=== PATIENT | male | born 1960 | race Caucasian/White ===

== ENCOUNTER → 2020-07-11 11:56 | Outpatient (BNVA) | payer SELFPAY | PROVIDERS: Family Provider Family Medicine; PCP Family Medicine; Visit Provider Nurse Practitioner Family | DX: Z20.828 Contact with and (suspected) exposure to other viral communicable diseases (principal); J06.9 Acute upper respiratory infection, unspecified | CPT/HCPCS: 87635 ==

== ENCOUNTER → 2021-09-13 13:31 | Outpatient (BNVA) | payer OTHER, SELFPAY | PROVIDERS: Family Provider Family Medicine; PCP Family Medicine; Visit Provider Nurse Practitioner | DX: S89.90XA Unspecified injury of unspecified lower leg, initial encounter (principal); M25.561 Pain in right knee; X58.XXXA Exposure to other specified factors, initial encounter | CPT/HCPCS: 73562 ==

== ENCOUNTER → 2022-05-02 11:45 | Outpatient (BNVA) | payer OTHER, SELFPAY | PROVIDERS: Family Provider Family Medicine; PCP Family Medicine; Visit Provider Family Medicine | DX: E11.9 Type 2 diabetes mellitus without complications (principal); E78.5 Hyperlipidemia, unspecified; I10 Essential (primary) hypertension | CPT/HCPCS: 80053; 80061; 83036; 84443; 85025 ==

== ENCOUNTER → 2022-05-30 11:41 | Outpatient (BNVA) | payer OTHER, SELFPAY | PROVIDERS: Family Provider Family Medicine; PCP Family Medicine; Visit Provider Family Medicine | DX: E11.9 Type 2 diabetes mellitus without complications (principal) | CPT/HCPCS: 80048 ==

== ENCOUNTER → 2022-08-01 10:19 | Outpatient (BNVA) | payer OTHER, SELFPAY | PROVIDERS: Family Provider Family Medicine; PCP Family Medicine; Visit Provider Family Medicine | DX: M79.672 Pain in left foot (principal); M79.89 Other specified soft tissue disorders; R93.7 Abnormal findings on diagnostic imaging of other parts of musculoskeletal system | CPT/HCPCS: 73650 ==

== ENCOUNTER 2022-08-22 06:00 | Outpatient (RCR) | payer OTHER, SELFPAY | END 2022-09-19 23:59 | disposition home or self-care (01) | LOC: TPT 06:00 | PROVIDERS: Visit Provider Podiatrist Foot & Ankle Surgery | DX: M76.62 Achilles tendinitis, left leg (principal) | CPT/HCPCS: 97110; 97162 ==

== ENCOUNTER 2022-09-20 06:00 | Outpatient (RCR) | payer OTHER, SELFPAY | END 2022-10-19 23:59 | disposition home or self-care (01) | LOC: TPT 06:00 | PROVIDERS: Visit Provider Podiatrist Foot & Ankle Surgery | DX: M76.62 Achilles tendinitis, left leg (principal) | CPT/HCPCS: 97110 ==

== ENCOUNTER 2022-10-02 12:53 | Outpatient (CLI) | payer OTHER, SELFPAY ==
--- NOTE | 2022-10-02 13:12 | USCV_ITS ---
Kenny Cervantes Age: 62 Gender: M : 1960 Exam Date: 10/02/2022 14:02 Ordering Phys: Perez Penn DPM Technologist: [place] [facility] [place]: RIGHT LEFT Brachial 152.00 mmHg Brachial 155.00 mmHg Pressure (mmHg) Waveform Pressure (mmHg) Waveform Above Knee 192.00 Below Knee 175.00 SALES [employer]ENT[employer]RSES 174.00 DPA 175.00 Ankle/Brachial Index 1.10 FINDINGS Resting BIN of 1.10 on the left side Resting TBI of 0.85 on the left side CONCLUSIONS Normal resting BIN and TBI on the left side No evidence of any significant arterial obstruction, based on the above findings. Dr Lo Foley MD [facility] (Electronically Signed) Final Date: 02 October 2022 18:59 S
== END 2022-10-02 12:54 | disposition home or self-care (01) ==
PROVIDERS: PCP Family Medicine; Visit Provider Podiatrist Foot & Ankle Surgery
DX: I73.9 Peripheral vascular disease, unspecified (principal); M76.62 Achilles tendinitis, left leg
CPT/HCPCS: 93922

== ENCOUNTER → 2022-11-28 09:22 | Outpatient (BNVA) | payer OTHER, SELFPAY | PROVIDERS: PCP Family Medicine; Visit Provider Family Medicine | DX: I10 Essential (primary) hypertension (principal); E11.9 Type 2 diabetes mellitus without complications; E78.5 Hyperlipidemia, unspecified | CPT/HCPCS: 80053; 80061; 83036; 84443; 85025; G0103 ==

== ENCOUNTER → 2023-03-27 08:20 | Outpatient (BNVA) | payer MEDICARE, SELFPAY | PROVIDERS: PCP Family Medicine; Visit Provider Family Medicine | DX: E11.9 Type 2 diabetes mellitus without complications (principal); I10 Essential (primary) hypertension | CPT/HCPCS: 80053; 83036; 85025 ==

== ENCOUNTER → 2023-08-11 10:16 | Outpatient (BNVA) | payer MEDICARE, SELFPAY | PROVIDERS: PCP Family Medicine; Visit Provider Family Medicine | DX: I10 Essential (primary) hypertension (principal); E78.5 Hyperlipidemia, unspecified; E11.9 Type 2 diabetes mellitus without complications; E03.9 Hypothyroidism, unspecified | CPT/HCPCS: 80053; 80061; 83036; 84443; 85025 ==

== ENCOUNTER → 2023-10-28 10:45 | Outpatient (BNVA) | payer MEDICARE, SELFPAY | PROVIDERS: PCP Family Medicine; Visit Provider Family Medicine | DX: E11.9 Type 2 diabetes mellitus without complications (principal); I10 Essential (primary) hypertension; E78.2 Mixed hyperlipidemia; E03.8 Other specified hypothyroidism; Z79.4 Long term (current) use of insulin | CPT/HCPCS: 80053; 80061; 83036; 84443; 85025 ==

== ENCOUNTER → 2023-11-09 08:51 | Outpatient (BNVA) | payer MEDICARE, SELFPAY | PROVIDERS: PCP Family Medicine; Referring Provider Family Medicine; Visit Provider Surgery | DX: K92.2 Gastrointestinal hemorrhage, unspecified (principal); K21.9 Gastro-esophageal reflux disease without esophagitis | CPT/HCPCS: 99204 ==

== ENCOUNTER 2023-12-16 10:58 | Day surgery (SDC) | payer MEDICARE, SELFPAY ==
--- OUTSIDE RECORDS SUMMARY | 2023-12-16 11:01 | XMS_ITS | Patient Health Record ---
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 Name Role Phone Sloan Светлана Primary Care Provider Vu Pate Unavailable [phone] Allergies Allergen (clinical drug ingredient) Drug/Non Drug Allergy documented on EMR Reaction Allergy Type Onset Date Status enalapril Enalapril Maleate Pain, constipation Drug Allergy Active Penicillin Unknown Drug Allergy Active tramadol Tramadol Pain, constipation Drug Allergy Active Reason For Referral No Information Medications Medication SIG (Take, Route, Frequency, Duration) Notes Start Date End Date Status NovoLOG 100 UNIT/ML INJECT SUBCUTANEOUSLY PER SLIDING SCALE 3 TIMES DAILY, MAX DAILY DOSE 50 UNITS for 90 Active Valsartan 320 MG TAKE 1 TABLET BY MOUTH EVERY DAY for 90 Active hydroCHLOROthiazide 25 MG TAKE 1/2 TABLE T BY MOUTH DAILY for 90 Active Atorvastatin Calcium 40 MG 1 tablet Orally Once a day a bedtime for 90 days Active Aspirin 81 81 MG 1 tablet Orally Once a day Active Dilt-XR 120 MG TAKE 1 CAPSULE BY MOUTH EVERY DAY for 30 I10 Essential Hypertension. Active Levothyroxine Sodium 150 MCG 1 tablet in the morning on an empty stomach Orally Once a day for 90 days Active Tresiba FlexTouch 200 UNIT/ML 42 units Subcutaneous daily for 90 days Active Immunizations Vaccine Route Administration Date Status Comme nts Fluzone High-Dose Quadrivale nt [place] Unknown 05/31/2021 Administered Pneumococcal conjugate PCV 13 Unknown 11/01/2015 Admini stered Pneumococcal polysaccharide PPV23 Unknown 07/28/2001 Ad ministered Tdap Unknown 08/03/2014 Administered Social History Tobacco Use: Social History Observation Description Date Details (start date - stop date) Never Smoker NA - NA Household Question Answer Notes Marital status: Level of education: finished high school xTobacco Use/Smoking Question Answer Notes Are you a nonsmoker Alcohol Screen (Audit-C) Question Answer Notes Did you have a drink containing alcohol in the p ast year? No Points 0 Interpretation Negative Problems Problem Type SNOMED Code ICD Code Onset Dates Problem Status W/U Status Risk Notes Problem Pure hypercholesterolemia (267150973) Pure hypercholesterolemia , unspecified (E78.00) Active confirmed Problem 76234926 Essential hypertension (I10) Active confirmed Problem 742567795 Type 1 diabetes mellitus without complication (E10.9) Active confirmed Problem 019945991 Hypothyroidism (acquired) (E03.9) Active confirmed Problem Androgen deficiency (87200734) Testosterone deficiency (257.2) 2010 Active confirmed [id number]- Problem Type I diabetes mellitus without complication (400771834) Type I diabetes (250.01) 2012 Active confirmed [id number]- Problem Essential hypertension (45612236) Essential hypertension (401.1) 2014 Active confirmed [id number]- Problem Hypertension (19574145) HTN (401.1) 2009 Active confirmed [id number]- Problem Acute otitis externa (24780176) Other acute otitis externa (380.22) 2011 Problem resolved confirmed [id number]- Problem Hearing loss (84449620) Unspecified hearing loss (389.9) 2013 Problem resolved confirmed [id number]- Problem Acute sinusitis (93039659) Acute sinusitis, unspecified (461.9) 2015 Problem resolved confirmed [id number]- Problem Cough (51559298) Cough (786.2) 2010 Problem resolved confirmed [id number]- Problem Screening for malignant neoplasm of prostate (860710853) Screening for prostate cancer (V76.44) 2007 Problem resolved confirmed [id number]- Problem Dizziness (484437054) Dizziness (780.4) 0 2015 Problem resolved confirmed [id number]- Problem Neck pain (97921549) Neck pain (723.1) 2012 Problem resolved confirmed [id number]- Problem Hypercholesterolemia (14005108) Hypercholesterolemia (272.0) 2004 Problem resolved confirmed [id number]- Problem Type II diabetes mellitus without complication (894120978) TRAVON (250.00) 2006 Problem resolved confirmed [id number]- Problem Shoulder pain (13769928) Shoulder pain (719.41) 2014 Problem resolved confirmed [id number]-[id number]- Problem Screening for colon cancer (100479342) Screening for colon cancer (V76.49) 2015 Problem resolved confirmed [id number]-[id number]- Problem Allergic rhinitis du e to allergen (97187108) Allergic rhinitis, other allergen-induced (477.8) 2016 Problem resolved confirmed [id number]-[id number]- Problem Vitamin B>12< deficiency anaemia (59059767) Other vitamin B12 deficiency (281.1) 2018 Problem resolved confirmed [id number]-[id number]- Problem Sore throat (046435863) Sore Throat (462) 2012 Problem resolved confirmed [id number]- Problem Intermittent claudication (77678790) Intermittent claudication (443.9) 2009 Problem resolved confirmed [id number]-[id number]- Problem Lab: Used to mat ch unlinked laboratory orders (V92) 2013 Problem resolved confirmed [id number]-[id number] [id number]- Problem Ear ache (57855212) Ear ache (388.71) 2010 Problem resolved confirmed [id number][id number] [id number]- Problem Hyperkalemia (12750263) Hyperkalemia (276.7) 2014 Problem resolved confirmed [id number][id number] [id number]- Problem Type I diabetes mellitus without complication (637414805) IDDM (250.01) 2003 Problem resolved confirmed [id number]-[id number] [id number]- Problem Lateral epicondyliti s (756625318) Lateral epicondylitis (726.32) 2012 Problem resolved confirmed [id number][id number] [id number]- Problem Serous otitis media (22594481) Serous otitis media (381.4) 2013 Problem resolved confirmed [id number]-[id number] [id number]- Problem Impacted cerumen (76962339) Cerumen impaction (380.4) 2009 Problem resolved confirmed [id number][id number] [id number]- Problem Congestion (82802599) Congestion (477.9) 2008 Problem resolved confirmed [id number][id number] [id number]- Problem Thyroid function tests abnormal (230039968) Abnormal thyroid findings (794.5) 2008 Problem resolved confirmed [id number]-98 [id number]- Problem Cervical radiculopathy (22202881) Cervical radiculopathy (723.4) 2015 Problem resolved confirmed [id number]-[id number] [id number]- Problem Migraine with aura (6328497) Classic migraine (346.00) 2014 Problem resolved confirmed [id number]-98 [id number]- Problem Iron deficiency anemia secondary to inadequate dietary iron intake (075128701) Iron deficiency anemia, due to inadequate dietary intake (280.1) 2018 Problem resolved confirmed [id number]-[id number] [id number]- Problem Acquired hypothyroidism (550800337) Acquired hypothyroidism (244.8) 2003 Problem resolved confirmed [id number]-[id number] [id number]- Problem Elbow pain (95412366) Elbow pain (719.42) 2006 Problem resolved confirmed [id number][id number] [id number]- Problem Erectile dysfunction (206735916) Erectile dysfunction (302.72) 2009 Problem resolved confirmed [id number]-[id number] [id number]- Problem Open wound of knee and/or leg and/or ankle (951604918) Leg laceration (891.0) 2010 Problem resolved confirmed [id number]98 [id number]- Problem Acquired hypothyroidism (015750190) Acquired hypothyroidism, other specified cause (244.8) 2009 Problem resolved confirmed [id number]-[id number] [id number]- Problem Lymphadenopathy (32258061) Adenopathy (785.6) 2003 Problem resolved confirmed [id number]98 [id number]- Problem Chronic sinusitis (69444319) Chronic sinusitis, other (473.8) 2015 Problem resolved confirmed [facility]98 [id number]- Problem Seborrheic keratosis (858106735) Seborrheic keratosis (702.19) 2013 Problem resolved confirmed [id number][id number] [id number]- Problem Impacted cerumen (87310031) External cerumen impaction (380.4) 2003 Problem resolved confirmed [id number]-[id number] [id number]- Problem Type I diabetes mellitus without complication (864965918) Type 1 diabetes (250.01) 2008 Problem resolved confirmed [id number]-[id number] [id number]- Problem Type II diabetes mellitus without complication (282019389) Type 2 diabetes (250.00) 2003 Problem resolved confirmed [facility]-98 5911- Problem General examination of patient (431291642) Wellness exam (V70.0) 2016 Problem resolved confirmed [facility]-98 5911- Plan Of Treatment No Information Insurance Providers Payer Name Payer Address Payer Phone Subscriber Number Group Number Insured Name Patient Relationship to Insured Coverage Start Date Coverage End Date [facility] [address] [address] [place] [phone] [id number] [facility] Self - patient is the insured Medical (General) History Medical History History ICD Code Type 1 diabetes, testing [place] quency 3 times a day, patient is treated with insulin injections Hypothyroidism Hypercholesterolemia Erectile dysfunction Testosterone deficiency Seasonal allergies Hypertension Surgical History Surgery Date(Month/Year) Vasectomy cyst on L jawyessye removed 12/2006 Back surgery 04/2003 Hospitalization History Reason Date(Month/Year) Back surgery
[2023-12-16 11:42] VITALS: BP 142/99; PULSE 89; RESP 16; TEMP 36.8; O2SAT 94; BMI 28.1
[2023-12-16] MEDS: sodium chloride 0.9% 1,000 ML 30 ML IV (11:47)
[2023-12-16 12:01] LABS: Glucose Point of Care 105 mg/dL (70-110)
--- NOTE | 2023-12-16 12:54 | P.ANESASSM_ITS ---
Pre-Anesthetic Assessment Height/Weight: Height 1.73 m Weight 83.915 kg Temp Pulse Resp BP Pulse Ox O2 Del Method 98.2 F 89 16 142/99 94 Room Air 12/16/23 11:42 12/16/23 11:42 12/16/23 11:42 12/16/23 11:42 12/16/23 11:42 12/16/23 11:42 Preop Diagnosis: GI bleed Operation Date: 12/16/23 12:15 Proposed Procedures p EGD 68215, 20104, G0105, K92.2 , K21.9(Not Applicable) - Mk Mijares DO s Colonoscopy(Not Applicable) - Mk Mijares DO Was Beta Sergio taken within 24 hours: N/A Was Clonidine taken within 24 hours: N/A Last intake: Intake Last Liquid Date 12/15/23 Last Liquid Time 23:00 Last Solid Date 12/14/23 Last Solid Time 16:30 Social No alcohol and No tobacco Exam alert, oriented x 3, clear to auscultation bilaterally and regular rate & rhythm Airway Submandibular: within normal limits Cervical ROM: within normal limits Mallampati: Class II Dentition: full History/ROS No significant history except as noted and No significant complaints Pulmonary None reported CV/HEM Hypertension None reported Hepatic None reported GI None reported Metabolic Diabetes Mellitus and Thyroid Disease [facility] [place] Lower Back Pain Neuropsych None reported Anesthetic Plan ASA status: 3 Anesthesia: Anesthesia Evaluation and MAC Risk of > 500 ml blood loss (7ml/kg in children): No Medications/Allergies Home Medications Medication Instructions Recorded Confirmed Last Taken Type insulin aspart U-100 100 unit/mL See Rx Instructions SUBCUT TID #50 12/05/22 12/16/23 12/14/23 Rx subcutaneous solution (Novolog mL U-100 Insulin aspart) atorvastatin 40 mg tablet 40 mg PO DAILY #90 tabs 08/11/23 12/16/23 12/15/23 Rx insulin degludec 100 unit/mL (3 See Rx Instructions .Route 08/11/23 12/16/23 12/15/23 Rx mL) subcutaneous pen (Tresiba .COMPLEX #15 mL FlexTouch U-100 insulin) levothyroxine 150 mcg capsule 150 mcg PO DAILY #90 caps 08/11/23 12/16/23 12/15/23 Rx spironolactone 25 mg tablet 25 mg PO DAILY #90 tabs 09/25/23 12/16/23 12/15/23 Rx diltiazem HCl 180 mg See Rx Instructions .Route 10/28/23 12/16/23 12/15/23 Rx capsule,extended release 24 hr, .COMPLEX #90 caps controlled hydrochlorothiazide 25 mg tablet 25 mg PO DAILY #90 tabs 10/28/23 12/16/23 12/15/23 Rx pantoprazole 40 mg tablet,delayed 40 mg PO BID 6 weeks #84 tabs 11/09/23 12/16/23 12/15/23 Rx release (Protonix) Allergies Allergy/AdvReac Type Severity Reaction Status Date / Time Penicillins Allergy unknown Verified 11/09/23 09:05 Current Medications Generic Name Dose Route Start Last Admin Trade Name Freq PRN Reason Stop Dose Admin Sodium Chloride 1,000 mls @ 30 mls/hr 12/16/23 11:15 12/16/23 11:47 Sodium Chloride 0.9% IV 12/17/23 11:14 30 mls/hr .Q24H TALIA Administration PFSH Anesthesia Medical History Diabetes mellitus Social History Smoking and tobacco/nicotine status: never used tobacco/nicotine Second hand smoke exposure: No Alcohol intake: never Substance/Drug Use: never Lives independently: Yes Household members: spouse Marital status: Current occupational status: employed Current occupation: [employer] Current gender identity: Male Special little needs: No Agree to transfusion: Yes Data Anesthesia Cardiac Studies: No Data to Display
--- NOTE | 2023-12-16 13:07 | P.HP_ITS ---
Providers/Chief Complaint Primary Care Provider: Eileen Kong MD Chief Complaint: K92.2 History of Present Illness Kenny Cervantes is a 63 year old male Review of Systems 2 General: Reports: 10 or more systems reviewed and unremarkable except in HPI and below Medications/Allergies Home Medications Medication Instructions Recorded Confirmed Last Taken Type insulin aspart U-100 100 unit/mL See Rx Instructions SUBCUT TID #50 12/05/22 12/16/23 12/14/23 Rx subcutaneous solution (Novolog mL U-100 Insulin aspart) atorvastatin 40 mg tablet 40 mg PO DAILY #90 tabs 08/11/23 12/16/23 12/15/23 Rx insulin degludec 100 unit/mL (3 See Rx Instructions .Route 08/11/23 12/16/23 12/15/23 Rx mL) subcutaneous pen (Tresiba .COMPLEX #15 mL FlexTouch U-100 insulin) levothyroxine 150 mcg capsule 150 mcg PO DAILY #90 caps 08/11/23 12/16/23 12/15/23 Rx spironolactone 25 mg tablet 25 mg PO DAILY #90 tabs 09/25/23 12/16/23 12/15/23 Rx diltiazem HCl 180 mg See Rx Instructions .Route 10/28/23 12/16/23 12/15/23 Rx capsule,extended release 24 hr, .COMPLEX #90 caps controlled hydrochlorothiazide 25 mg tablet 25 mg PO DAILY #90 tabs 10/28/23 12/16/23 12/15/23 Rx pantoprazole 40 mg tablet,delayed 40 mg PO BID 6 weeks #84 tabs 11/09/23 12/16/23 12/15/23 Rx release (Protonix) Allergies Allergy/AdvReac Type Severity Reaction Status Date / Time Penicillins Allergy unknown Verified 11/09/23 09:05 PFSH Acute PFSH: Medical History Diabetes mellitus Social History Smoking and tobacco/nicotine status: never used tobacco/nicotine Second hand smoke exposure: No Alcohol intake: never Substance/Drug Use: never Lives independently: Yes Household members: spouse Marital status: Current occupational status: employed Current occupation: [employer] Current gender identity: Male Special little needs: No Agree to transfusion: Yes Vitals/I&O/Wt Last Vital Signs Temp 98.2 F 12/16/23 11:42 Pulse 89 12/16/23 11:42 Resp 16 12/16/23 11:42 BP 142/99 12/16/23 11:42 Pulse Ox 94 12/16/23 11:42 O2 Del Method Room Air 12/16/23 11:42 Weight last 48 hrs Weight 185 lb A&P Assessment and plan (1) GI bleed: (2) GERD (gastroesophageal reflux disease): Plan EGD and colonoscopy Attestations Medical Necessity Statement*: Home Coding Level of Care Code Acute Code for Chg Fwd Diagnoses GI bleed K92.2 GERD (gastroesophageal reflux disease) K21.9
[2023-12-16 13:35] VITALS: BP 124/85; PULSE 77; RESP 20; TEMP 36.5; O2SAT 95
[2023-12-16 13:50] VITALS: BP 129/87; PULSE 81; RESP 20; O2SAT 97
--- NOTE | 2023-12-16 14:15 | ANE.PACU2 ---
Inpatient post-anesthesia follow up: Airway intact: Yes Vital signs: Temperature 97.7 F Pulse Rate 81 Respiratory Rate 20 Blood Pressure 129/87 Pulse Oximetry 97 Oxygen Delivery Me thod Room Air Oxygen Flow Rate Fraction of Inspir ed Oxygen Hydration adequate: Yes Nausea and vomiting: No Pain level: 1 Mental status: Baseline
== END 2023-12-16 14:15 | disposition home or self-care (01) ==
PROVIDERS: PCP Family Medicine; Visit Provider Surgery
PROC: 0DJ08ZZ Inspection of Upper Intestinal Tract, Via Natural or Artificial Opening Endoscopic (ICD-10-PCS; CPT 43235; principal; 2023-12-16 12:15)
PROC: 0DJD8ZZ Inspection of Lower Intestinal Tract, Via Natural or Artificial Opening Endoscopic (ICD-10-PCS; CPT 45378; 2023-12-16 12:15)
DX: K92.2 Gastrointestinal hemorrhage, unspecified (principal); K21.9 Gastro-esophageal reflux disease without esophagitis; K64.8 Other hemorrhoids; K57.30 Diverticulosis of large intestine without perforation or abscess without bleeding; D12.4 Benign neoplasm of descending colon; D12.5 Benign neoplasm of sigmoid colon; K44.9 Diaphragmatic hernia without obstruction or gangrene; E11.9 Type 2 diabetes mellitus without complications; Z79.4 Long term (current) use of insulin
CPT/HCPCS: 36416; 43239; 45385; 82962; 88305; 88342; J2704; J7030

== ENCOUNTER → 2024-01-11 08:33 | Outpatient (BNVA) | payer MEDICARE, SELFPAY | PROVIDERS: PCP Family Medicine; Visit Provider Surgery | DX: K64.9 Unspecified hemorrhoids; K21.9 Gastro-esophageal reflux disease without esophagitis; D37.4 Neoplasm of uncertain behavior of colon | CPT/HCPCS: 99214 ==

== ENCOUNTER → 2024-02-15 08:59 | Outpatient (BNVA) | payer MEDICARE, SELFPAY | PROVIDERS: PCP Family Medicine; Visit Provider Family Medicine | DX: Z12.5 Encounter for screening for malignant neoplasm of prostate (principal); E11.9 Type 2 diabetes mellitus without complications; E03.8 Other specified hypothyroidism; Z79.4 Long term (current) use of insulin | CPT/HCPCS: 80053; 80061; 82043; 83036; 84443; 85025; G0103 ==

== ENCOUNTER 2024-02-25 07:39 | Outpatient (CLI) | payer MEDICARE, SELFPAY ==
--- NOTE | 2024-02-25 08:00 | MM_ITS ---
WS: [id number] BILATERAL 3D TOMOSYNTHESIS DIGITAL DIAGNOSTIC MAMMOGRAPHY WITH CAD CLINICAL INFORMATION: N63.0 - Unspecified lump in unspecified breast HISTORY: LEFT breast lump COMPARISON: None. TECHNIQUE: Bilateral CC, MLO, and ML views. FINDINGS: Scattered fibroglandular densities bilaterally. Prominent subareolar LEFT breast tissue likely due to gynecomastia in the area of the palpable marker. Nodule 12 o'clock position likely intramammary lymp h node. Ultrasound is pending. RIGHT breast is unremarkable. ULTRASOUND BREAST LEFT TECHNIQUE: Ultrasound left breast focused area of concern. CLINICAL INFORMATION: N63.0 - Unspecified lump in unspecified breast FINDINGS: Ultrasound LEFT breast subareolar and area of palpable concern. Dense subareolar LEFT breast tissue c ompatible with gynecomastia. At the 12 o'clock position, small underlying lymph node corresponding to the mammographic findings. No suspicious underlying cystic or solid lesions to target for biopsy. Fi ndings are benign. MM/[place] [id number] IMPRESSION: DENSITY: There are scattered areas of fibroglandular density. BI-RADS: 2 - Benign. FOLLOW UP: See Report
--- NOTE | 2024-02-25 08:30 | US_ITS ---
WS: [id number] BILATERAL 3D TOMOSYNTHESIS DIGITAL DIAGNOSTIC MAMMOGRAPHY WITH CAD CLINICAL INFORMATION: N63.0 - Unspecified lump in unspecified breast HISTORY: LEFT breast lump COMPARISON: None. TECHNIQUE: Bilateral CC, MLO, and ML views. FINDINGS: Scattered fibroglandular densities bilaterally. Prominent subareolar LEFT breast tissue likely due to gynecomastia in the area of the palpable marker. Nodule 12 o'clock position likely intramammary lymp h node. Ultrasound is pending. RIGHT breast is unremarkable. ULTRASOUND BREAST LEFT TECHNIQUE: Ultrasound left breast focused area of concern. CLINICAL INFORMATION: N63.0 - Unspecified lump in unspecified breast FINDINGS: Ultrasound LEFT breast subareolar and area of palpable concern. Dense subareolar LEFT breast tissue c ompatible with gynecomastia. At the 12 o'clock position, small underlying lymph node corresponding to the mammographic findings. No suspicious underlying cystic or solid lesions to target for biopsy. Fi ndings are benign. US/US breast LT complete [id number] IMPRESSION: DENSITY: There are scattered areas of fibroglandular density. BI-RADS: 2 - Benign. FOLLOW UP: See Report
== END 2024-02-25 07:40 | disposition home or self-care (01) ==
LOC: RAD 07:40
PROVIDERS: PCP Family Medicine; Visit Provider Family Medicine
DX: N63.0 Unspecified lump in unspecified breast (principal); R92.323 Mammographic fibroglandular density, bilateral breasts; N62 Hypertrophy of breast
CPT/HCPCS: 76641; 77062; G0279